=== PATIENT | female | born 1995 | race Caucasian/White ===

== ENCOUNTER → 2021-02-07 | Outpatient (CLI) | payer OTHER ==
--- NOTE | 2021-02-07 10:11 | REP ---
INDICATION: RT KNEE PAIN R/O TEAR. COMPARISON: None. TECHNIQUE: Axial CT right knee, with sagittal, coronal and 3D MIP reconstruction images. FINDINGS: There is no acute fracture or dislocation. There is mild medial compartment chondromalacia and joint space narrowing. A metallic screw is seen in the medial femoral condyle. A subcentimeter bone island is seen in the medial tibial plateau. Two screw holes are seen in the medial patellar facet which are partially filled in. There is no evidence of a joint effusion. There is no evidence of a popliteal cyst. No calcified joint body is seen. 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 There is a metallic screw in the medial femoral condyle. Two screw holes are seen in the medial patellar facet, which are partially filled in. No other significant findings. <Electronically signed by Moisés Mon > 02/07/21 [id number]
== END ==
LOC: M PLAIMG 09:06
PROVIDERS: ATTEND Physician Assistant
DX: M25.561 Pain in right knee (principal); M94.261 Chondromalacia, right knee

== ENCOUNTER → 2021-03-28 | Outpatient (REF) | payer OTHER ==
[2021-03-28 17:31] LABS: HEMATOCRIT 37.9 % (36.0-47.0); HEMOGLOBIN 12.3 g/dl (12.0-15.5); MEAN CORPUSCULAR HGB CONC 32.5 g/dl (32.0-36.5); MEAN CORPUSCULAR VOLUME 83.1 fl (80.0-96.0); PLATELET COUNT, AUTOMATED 300 10^3/uL (150-450); RED BLOOD COUNT 4.56 10^6/uL (4.00-5.40); WHITE BLOOD COUNT 9.2 10^3/uL (4.0-10.0)
[2021-03-28 18:30] LABS: HCG, SERUM QUANTITATIVE 116303 MIU/ML; HEPATITIS B SURFACE ANTIGEN NEGATIVE (NEGATIVE)
[2021-03-28 18:41] LABS: HEPATITIS C VIRUS ABY INDEX < 0.0 INDEX (<0.8); HIV 1&2 SCREEN CENTAUR NEGATIVE (NEGATIVE)
== END ==
LOC: M LAB REF 16:58
PROVIDERS: ATTEND Obstetrics & Gynecology
DX: Z36.89 Encounter for other specified antenatal screening (principal); Z3A.00 Weeks of gestation of pregnancy not specified

== ENCOUNTER → 2021-06-17 | Outpatient (CLI) | payer OTHER | LOC: M WHC 08:04 | PROVIDERS: ATTEND Obstetrics & Gynecology | DX: Z34.92 Encounter for supervision of normal pregnancy, unspecified, second trimester (principal); Z36.89 Encounter for other specified antenatal screening; Z3A.19 19 weeks gestation of pregnancy ==

== ENCOUNTER 2021-07-18 12:39 | Outpatient (RCR) | payer OTHER | END 2021-07-19 | LOC: M PT 12:39 | PROVIDERS: ATTEND Advanced Practice Midwife | DX: M54.50 Low back pain, unspecified (principal) ==

== ENCOUNTER 2021-07-26 12:41 | Outpatient (RCR) | payer OTHER | END 2021-08-19 | LOC: M PT 12:41 | PROVIDERS: ATTEND Advanced Practice Midwife | DX: Z34.80 Encounter for supervision of other normal pregnancy, unspecified trimester (principal); M54.50 Low back pain, unspecified ==

== ENCOUNTER → 2021-08-13 | Outpatient (CLI) | payer OTHER ==
[2021-08-13 15:15] LABS: GC DNA AMPLIFICATION NEGATIVE (NEGATIVE)
== END ==
LOC: M PLALAB 09:45
PROVIDERS: ATTEND Obstetrics & Gynecology
DX: Z34.02 Encounter for supervision of normal first pregnancy, second trimester (principal); Z36.89 Encounter for other specified antenatal screening; Z3A.27 27 weeks gestation of pregnancy
CPT/HCPCS: 36415; 82950; 86850; 86900; 86901; 87810; 87850; G0463

== ENCOUNTER → 2021-10-15 | Outpatient (REF) | payer OTHER | LOC: M PLALAB 09:49 | PROVIDERS: ATTEND Specialist | DX: Z34.03 Encounter for supervision of normal first pregnancy, third trimester (principal); Z36.85 Encounter for antenatal screening for Streptococcus B | CPT/HCPCS: 87081; 87186; G0463 ==

== ENCOUNTER → 2022-08-27 | Outpatient (REF) | payer OTHER ==
[~2022-08-27] MED LIST: ACET-683 PO; IBUP-1022 PO; PREN1CHW6 PO
== END ==
LOC: M PLALAB 14:45
PROVIDERS: ATTEND Obstetrics & Gynecology
DX: Z01.419 Encounter for gynecological examination (general) (routine) without abnormal findings (principal)

== ENCOUNTER → 2023-01-15 | Outpatient (CLI) | payer OTHER ==
[2023-01-15 14:46] LABS: HEMATOCRIT 39.2 % (36.0-47.0); HEMOGLOBIN 12.7 g/dl (12.0-15.5); MEAN CORPUSCULAR HEMOGLOBIN 27.1 pg (27.0-33.0); MEAN CORPUSCULAR HGB CONC 32.4 g/dl (32.0-36.5); MEAN CORPUSCULAR VOLUME 83.6 fl (80.0-96.0); PLATELET COUNT, AUTOMATED 284 10^3/uL (150-450); RED BLOOD COUNT 4.69 10^6/uL (4.00-5.40); WHITE BLOOD COUNT 6.8 10^3/uL (4.0-10.0)
[2023-01-15 16:05] LABS: GC DNA AMPLIFICATION NEGATIVE (NEGATIVE)
[2023-01-15 16:23] LABS: HIV 1&2 SCREEN NEGATIVE (NEGATIVE)
[2023-01-15 16:32] LABS: HEPATITIS C VIRUS ABY INDEX 0.07 INDEX (<0.8)
== END ==
LOC: M PLALAB 10:22
PROVIDERS: ATTEND Advanced Practice Midwife
DX: Z36.89 Encounter for other specified antenatal screening (principal); Z3A.00 Weeks of gestation of pregnancy not specified

== ENCOUNTER → 2023-02-20 | Outpatient (REF) | payer OTHER | LOC: M PLALAB 13:12 | PROVIDERS: ATTEND Obstetrics & Gynecology | DX: Z34.80 Encounter for supervision of other normal pregnancy, unspecified trimester (principal) ==

== ENCOUNTER → 2023-03-27 | Outpatient (CLI) | payer OTHER | LOC: M WHC 11:48 | PROVIDERS: ATTEND Obstetrics & Gynecology | DX: Z34.92 Encounter for supervision of normal pregnancy, unspecified, second trimester (principal); Z3A.20 20 weeks gestation of pregnancy ==

== ENCOUNTER → 2023-04-24 | Outpatient (CLI) | payer OTHER | LOC: M WHC 14:36 | PROVIDERS: ATTEND Obstetrics & Gynecology | DX: Z36.2 Encounter for other antenatal screening follow-up (principal) ==

== ENCOUNTER → 2023-06-19 | Outpatient (CLI) | payer OTHER ==
[2023-06-19 16:33] LABS: HEMATOCRIT 36.6 % (36.0-47.0); HEMOGLOBIN 11.9 g/dl (12.0-15.5); MEAN CORPUSCULAR HEMOGLOBIN 28.4 pg (27.0-33.0); MEAN CORPUSCULAR HGB CONC 32.5 g/dl (32.0-36.5); MEAN CORPUSCULAR VOLUME 87.4 fl (80.0-96.0); PLATELET COUNT, AUTOMATED 224 10^3/uL (150-450); RED BLOOD COUNT 4.19 10^6/uL (4.00-5.40); WHITE BLOOD COUNT 10.3 10^3/uL (4.0-10.0)
== END ==
LOC: M PLALAB 13:06
PROVIDERS: ATTEND Obstetrics & Gynecology
DX: Z34.92 Encounter for supervision of normal pregnancy, unspecified, second trimester (principal)

== ENCOUNTER → 2023-07-09 | Outpatient (CLI) | payer OTHER | LOC: M WHC 09:28 | PROVIDERS: ATTEND Obstetrics & Gynecology | DX: O26.843 Uterine size-date discrepancy, third trimester (principal); Z3A.34 34 weeks gestation of pregnancy ==

== ENCOUNTER → 2023-07-29 | Outpatient (REF) | payer OTHER | LOC: M PLALAB 11:12 | PROVIDERS: ATTEND Advanced Practice Midwife | DX: Z34.80 Encounter for supervision of other normal pregnancy, unspecified trimester (principal); Z36.89 Encounter for other specified antenatal screening; Z3A.00 Weeks of gestation of pregnancy not specified ==